=== PATIENT | female | born 1965 | race Caucasian/White ===

== ENCOUNTER 2017-06-12 12:09 | Emergency (ER) | payer MEDICAID, OTHER ==
[~2017-06-12] VITALS: Ht 175.3 cm; Wt 81.6 kg
[2017-06-12 12:16] VITALS: BP 180/116
[2017-06-12] MEDS ORDERED: HYDROcodone-ACET 10/325MG TAB PO ONE (14:30)
[2017-06-12] MEDS ORDERED: TETANUS-DIPTH-ACEL PERTUSSIS 0.5ML SYRG IM ONE (14:30)
== END 2017-06-12 15:03 | disposition home or self-care (01) ==
LOC: ER 12:09
DX: S01.01XA Laceration without foreign body of scalp, initial encounter (principal); S40.012A Contusion of left shoulder, initial encounter; Y08.89XA Assault by other specified means, initial encounter; Y93.89 Activity, other specified; Y92.89 Other specified places as the place of occurrence of the external cause; Y99.8 Other external cause status; Z88.6 Allergy status to analgesic agent; Z23 Encounter for immunization
CPT/HCPCS: 12002; 70450; 90471; 90715

== ENCOUNTER 2017-06-23 17:51 | Emergency (ER) | payer MEDICAID ==
[~2017-06-23] VITALS: Ht 175.3 cm; Wt 74.8 kg
[2017-06-23 20:03] VITALS: BP 158/110
[2017-06-23] MEDS ORDERED: cloNIDine HCL 0.1 MG TAB PO ONE (20:15)
== END 2017-06-23 21:19 | disposition home or self-care (01) ==
LOC: ER 17:53
DX: S00.83XD Contusion of other part of head, subsequent encounter (principal); X58.XXXD Exposure to other specified factors, subsequent encounter
CPT/HCPCS: 70450